=== PATIENT | female | born 1995 | race Two or more races ===

== ENCOUNTER 2019-04-29 12:34 | Emergency (ER) | payer BC ==
[2019-04-29 15:01] LABS: Urine Appearance Cloudy; Urine Bacteria Absent (Absent); Urine Bilirubin Negative (Negative); Urine Blood Negative (Negative); Urine Color Yellow; Urine Glucose Negative (Negative); Urine Ketones 1+ (Negative); Urine Nitrite Negative (Negative); Urine Protein 2+(100 mg/dL) (Negative); Urine Red Blood Cell 1+(3-5/hpf) (Absent); Urine Specific Gravity 1.032 (1.010-1.030); Urine Squamous Epithelial Cell Present (Absent); Urine Urobilinogen Negative (Negative); Urine White Blood Cell 3+(>20/hpf) (Absent)
[2019-04-29] MEDS ORDERED: Albuterol 2.5 MG/3 ML NEB.SOL* (0.083%) INH ONE (15:02)
--- NOTE | 2019-04-29 15:07 | ED ---
GI/ HPI - HPI Summary HPI Summary: Patient is a 23-year-old female who presents emergency department for pelvic pain and fever. Pt. is a student at [employer] and had an IUD placed 3 days ago. She states she had some mild discomfort after and pain increased severely today. Patient also had a fever at home of the 102F per patient. Denies associated symptoms of vomiting, vaginal discharge or bleeding. Patient states she tested negative for STDs 3 days ago. Denies new sexual partners. No past medical history. Symptoms are moderate in severity. No current modifying factors. Patient otherwise denies upper respiratory symptoms, cough, sore throat, ear pain. - History of Current Complaint Chief Complaint: EDAbdPain Time Seen by Provider: 04/29/19 14:59 Stated Complaint: ABD PAIN/BACK PAIN/FEVER PER PT Hx Obtained From: Patient Pain Intensity: 8 - Allergy/Home Medications Allergies/Adverse Reactions: Allergies Allergy/AdvReac Type Severity Reaction Status Date / Time No Known Allergies Allergy Verified 04/29/19 12:37 Home Medications: Home Medications Albuterol HFA INHALER* [Ventolin HFA Inhaler*] 2 puff INH Q4H PRN 04/29/19 [ History Confirmed 04/29/19] Fluticasone-Salmeterol 250-50* [Advair Diskus 250-50*] 1 puff INH BID 04/29/19 [ History Confirmed 04/29/19] PMH/Surg Hx/FS Hx/Imm Hx Previously Healthy: Yes Infectious Disease History: No Infectious Disease History: Denies: Traveled Outside the [place] in Last 30 Days - Family History Known Family History: Positive: Non-Contributory - Social History Occupation: Student Lives: Dormitory/Roommates Alcohol Use: Weekly Substance Use Type: Reports: None Smoking Status (MU): Never Smoked Tobacco Review of Systems Positive: Fever, Chills ENT: Negative Cardiovascular: Negative Respiratory: Negative Positive: Abdominal Pain. Negative: Vomiting, Nausea Negative: dysuria, discharge, flank pain Skin: Negative All Other Systems Reviewed And Are Negative: Yes Physical Exam Triage Information Reviewed: Yes Vital Signs On Initial Exam: Initial Vitals Temp Pulse Resp BP Pulse Ox 99.1 F 122 16 109/72 98 04/29/19 12:35 04/29/19 12:35 04/29/19 12:35 04/29/19 12:35 04/29/19 12:35 Vital Signs Reviewed: Yes Appearance: Positive: Well-Appearing - Patient sitting on bed in no acute distress. Skin: Positive: Warm, Dry Head/Face: Positive: Normal Head/Face Inspection Eyes: Positive: Normal, EOMI ENT: Positive: TMs normal, Other - Bilateral enlarged tonsils patient states is normal for her without exudate or erythema. Neck: Positive: Supple Respiratory/Lung Sounds: Positive: Clear to Auscultation, Breath Sounds Present Cardiovascular: Positive: Normal, RRR Abdomen Description: Positive: Other: - Abdomen with marked tenderness and guarding in all 4 quadrants. No CVA tenderness. Pelvic Exam: Positive: Other - Exam performed with female techCHRISTIANO. External genitalia unremarkable. Speculum exam reveals a small amount of rogers dc from cervix. IUD strings were identified at the cervix. Strings were grasp with a ringed forcep and slowly removed. Entire IUD removed without difficulty. Pt. tolerated well. Neurological: Positive: Normal, CN Intact II-III Psychiatric: Positive: Affect/Mood Appropriate Diagnostics - Vital Signs Vital Signs Temp Pulse Resp BP Pulse Ox 04/29/19 15:06 98.1 F 101 17 114/73 99 04/29/19 14:32 98.0 F 100 16 102/79 99 04/29/19 12:35 99.1 F 122 16 109/72 98 - Laboratory Lab Results: Lab Results 04/29/19 Range/Units 14:45 Urine Color Yellow Urine Appearance Cloudy Urine pH 7.0 (5-9) Ur Specific [place] 1.032 H (1.010-1.030) Urine Protein 2+(100 mg/dl) A (Negative) Urine Ketones 1+ A (Negative) Urine Blood Negative (Negative) Urine Nitrate Negative (Negative) Urine Bilirubin Negative (Negative) Urine Urobilinogen Negative (Negative) Ur Leukocyte Esterase 2+ A (Negative) Urine WBC (Auto) 3+(>20/hpf) A (Absent) Urine RBC (Auto) 1+(3-5/hpf) A (Absent) Ur Squamous Epith Cells Present A (Absent) Urine Bacteria Absent (Absent) Urine Glucose Negative (Negative) Result Diagrams: 04/29/19 15:34 04/29/19 15:34 Lab Statement: Any lab studies that have been ordered have been reviewed, and results considered in the medical decision making process. GIGU Course/Dx - Course Course Of Treatment: Patient with marked abdominal pain, subjective fever 3 days after having an IUD placed. She is afebrile. Mildly tachycardic. Blood work and pelvic ultrasound ordered. CBC shows a leukocytosis of 25,000. Elevated CRP, labs otherwise unremarkable. Case discussed with Dr. Puckett who recommends CT scan of abdomen and pelvis as well for further evaluation of etiology of fever and pain. Pelvic ultrasound shows IUD in appropriate position , reading per radiology. Case discussed with gynecology, Dr. Moore. Recommends treatment with PID antibiotics. Dr. Moore states that iud can be left in place or removed today. CT scan shows questionable mesenteric adenitis without other findings per radiology. Discussed results and plan with pt. Discussed risk vs benefits of IUD removal and pt. would like IUD removed today. IUD removed as above without difficulty. Will tx pt. with rocephin and a course of doxy. A few days of lortab rx for pain. Advised pt. she needs to see her CATHEAD OPERATOR Thursday or Thursday. Advised to return to ER over the weekend for increased pain, vomiting, or high fever. Pt. understands and agrees with plan. - Diagnoses Differential Diagnoses - Female: Appendicitis, Ovarian Torsion, Pelvic Inflammatory Disease, Sepsis, STD Provider Diagnoses: PID (acute pelvic inflammatory disease), Infection associated with intrauterine device (IUD) Discharge ED - Sign-Out/Discharge Documenting (check all that apply): Patient Departure Patient Received Moderate/Deep Sedation with Procedure: No - Discharge Plan Condition: Good Disposition: HOME Prescriptions: DOXYcycline CAP(*) [DOXYcycline 100MG CAP(*)] 100 mg PO BID #28 cap Hydrocodone/Acetaminophen [Hydrocodone-Acetamin 5-325 mg] 1 each PO Q6H #12 tablet MDD 4 Patient Education Materials: Pelvic Inflammatory Disease (ED) Referrals: [facility] [Primary Care Provider] - Additional Instructions: Schedule a follow up appointment with your CATHEAD OPERATOR within 2-3 days Avoid sexual activity until advised by your CATHEAD OPERATOR Take antibiotic as directed Pain medication as directed Return to ER for increased pain, vomiting, high fever or if concerned - Billing Disposition and Condition Condition: GOOD Disposition: Home
[2019-04-29 15:41] LABS: Hematocrit 38 % (35-47); Hemoglobin 12.5 g/dL (12.0-16.0); Mean Corpuscular HGB Conc 33 g/dL (31-36); Mean Corpuscular Hemoglobin 27 pg (27-31); Mean Corpuscular Volume 80 fL (80-97); Mean Platelet Volume 7.9 fL (7.4-10.4); Platelet Count 260 10^3/uL (150-450); Red Blood Count 4.68 10^6 /uL (3.70-4.87); Red Cell Distribution Width 15 % (10-15); White Blood Count 25.3 10^3/uL (3.5-10.8)
[2019-04-29] MEDS ORDERED: NS 0.9% 1000 ML** 1,000 ML IV ONE (15:46)
[2019-04-29 15:58] LABS: ALT 13 U/L (7-52); AST 15 U/L (13-39); Albumin/Globulin Ratio 1.2 (1-3); Alkaline Phosphatase 60 U/L (34-104); Anion Gap 7 mmol/L (2-11); BUN/Creatinine Ratio 16.9 (8-20); Blood Urea Nitrogen 14 mg/dL (6-24); C Reactive Protein 116.48 mg/L (<8.01); CO2 Carbon Dioxide 23 mmol/L (22-32); Calcium 9.1 mg/dL (8.6-10.3); Chloride 106 mmol/L (101-111); EGFR Non-African American 86.8 (>60); Globulin 3.4 g/dL (2-4); Glucose 99 mg/dL (70-100); Potassium 3.7 mmol/L (3.5-5.0); Sodium 136 mmol/L (135-145); Total Protein 7.4 g/dL (6.4-8.9)
[2019-04-29 16:03] LABS: HCG Pregnancy < 0.60 mIU/mL
[2019-04-29 16:06] LABS: ABS Lymphocytes 1.3 10^3/ul (1.0-4.8); ABS Monocytes 0.8 10^3/ul (0-0.8); ABS Neutrophils 23.2 10^3/ul (1.5-7.7); Lymphocyte % 5.1 %; Nucleated Red Blood Cells % 0.1
[2019-04-29] MEDS ORDERED: Iohexol 300* (CONTRAST) 10 ML SDV IV ONE (16:20)
[2019-04-29] MEDS ORDERED: Ketorolac INJ* 30 MG/ML 1 ML VIAL IV PUSH ONE (16:38)
[2019-04-29] MEDS ORDERED: DOXYcycline CAP(*) 100 MG PO ONE (17:10)
[2019-04-29] MEDS ORDERED: cefTRIAXone VIAL(*) 250 MG VIAL IM ONE (17:10)
[2019-04-29] MEDS ORDERED: Lidocaine 1% MPF ** 5 ML VIAL IM ONE (17:10)
[2019-04-29 18:03] VITALS: BP 129/88
== END 2019-04-29 18:02 | disposition home or self-care (01) ==
LOC: ED 12:34
DX: N73.9 Female pelvic inflammatory disease, unspecified (principal); T83.69XA Infection and inflammatory reaction due to other prosthetic device, implant and graft in genital tract, initial encounter; Y83.1 Surgical operation with implant of artificial internal device as the cause of abnormal reaction of the patient, or of later complication, without mention of misadventure at the time of the procedure; Y92.9 Unspecified place or not applicable; Z79.899 Other long term (current) drug therapy
CPT/HCPCS: 36415; 74177; 76830; 80053; 81003; 81015; 83605; 83690; 84702; 85025; 86140; 87040; 87086; 96361; 96372; 96374; 99283; A9270-GY; J0696; J1885; Q9967